=== PATIENT | female | born 1980 | race Caucasian/White ===

== ENCOUNTER 2016-07-30 18:31 | Emergency (ER) | payer MEDICAID ==
[~2016-07-30] VITALS: Ht 154.9 cm; Wt 67.0 kg
[~2016-07-30 18:31] MED LIST: CALC600T11 PO; FERR240T9 PO; IBUP-1542 PO; PREN-19 PO
[2016-07-30 18:35] VITALS: Ht 154.9 cm; Wt 67.0 kg
--- NOTE | 2016-07-30 20:07 | ERD ---
ER Documentation Chief Complaint Date/Time DATE: 07/30/16 TIME: 19:58 Chief Complaint sent by pmd for l pelvic pain and vag bleed since 06/13/16 HPI 35-year-old female presents to the emergency department complaining of pelvic pain and vaginal bleeding for 2 months since Jun 13, 2016. Patient complains of pelvic pain 8 out of 10 and describes as constant. She states that she uses 8 pads per day. Patient was seen at the [facility] by JOHN Shepherd and was referred here. Patient was given Toradol 60 mg IM in the clinic, an hour and a half ago by the provider. Patient denies any urinary symptoms or dizziness. Patient denies ROS All systems reviewed and are negative except as per history of present illness. Medications Home Meds Active Scripts Acetaminophen* (Tylenol*) 325 Mg Tablet, 2 TAB PO Q6 Y for PAIN AND OR ELEVATED TEMP, #20 TAB Prov:CECILIO GAMBOA PA-C 07/30/16 Ibuprofen* (Ibuprofen*) 600 Mg Tablet, 600 MG PO Q6 for 28 Days, TAB 0 Refills Prov:JOHANA MACEDO MD 03/16/16 Reported Medications Ferrous Gluconate (Iron) 1 Tab Tablet, 1 TAB PO DAILY, TAB 03/03/16 Calcium Carbonate* (Calcium Carbonate*) 600 MG Ca Tab, 600 MG PO DAILY, TAB 03/03/16 Vit-Iron,Carbonyl-FA (Prenatabs Rx) 1 Tab Tablet, 1 TAB PO 04/01/12 Allergies Allergies: Coded Allergies: No Known Allergies (Verified Allergy, Unknown, 01/30/16) PMhx/Soc History of Surgery: Yes (Episiotomy) Anesthesia Reaction: No Hx Neurological Disorder: No Hx Respiratory Disorders: No Hx Cardiac Disorders: No Hx Psychiatric Problems: No Hx Miscellaneous Medical Probl: Yes (,Dysfunctional Uterine Bleed) Hx Alcohol Use: No Hx Substance Use: No Hx Tobacco Use: No Smoking Status: Never smoker Physical Exam Vitals Vital Signs Date Time Temp Pulse Resp B/P Pulse Ox O2 Delivery O2 Flow Rate FiO2 07/30/16 18:35 98.4 69 20 153/91 99 Physical Exam GENERAL: well-developed/well-nourished, in no apparent distress, non-toxic appearing HENT: NC/AT, moist mucous membranes EYES: Conjunctiva normal NECK: Supple, no lymphadenopathy PULM: CTA bilaterally, no rales, rhonchi, or wheezing heard CV: Normal S1S2, RRR, good capillary refill GI: Soft, non-distended, tender to palpation pelvic region Normal bowel sounds, no masses or organomegaly felt on exam No gross peritonitis, no bruits Negative Rovsing, negative Garcia, negative McBurney's point, Negative CVAT BACK: No masses EXT: No clubbing, cyanosis, or edema NEURO: Alert and Orientated SKIN: Intact, normal turgor PSYCH: Normal mood and mentation Result Diagram: 07/30/16195807/30/161958 Results 24 hrs Laboratory Tests Test 07/30/16 19:59 07/30/16 20:00 Alanine Aminotransferase (ALT/SGPT) 27IU/L Albumin 4.5g/dl Albumin/Globulin Ratio 1.12 Alkaline Phosphatase 97IU/L Anion Gap 17 Aspartate Amino Transf (AST/SGOT) 18IU/L Basophils # 0.010^3/ul Basophils % 0.4% Blood Morphology Comment Blood Urea Nitrogen 20mg/dl Calcium Level 9.6mg/dl Carbon Dioxide Level 24mmol/L Chloride Level 106mmol/L Creatinine 0.68mg/dl Direct Bilirubin 0.00mg/dl Eosinophils # 0.110^3/ul Eosinophils % 0.8% Globulin 4.00g/dl Glucose Level 67mg/dl Hematocrit 36.1% Hemoglobin 12.2g/dl Indirect Bilirubin 0.1mg/dl Lipase 57U/L Lymphocytes # 2.510^3/ul Lymphocytes % 21.0% Mean Corpuscular Hemoglobin 28.3pg Mean Corpuscular Hemoglobin Concent 33.8g/dl Mean Corpuscular Volume 83.8fl Mean Platelet Volume 8.2fl Monocytes # 0.610^3/ul Monocytes % 5.0% Neutrophils # 8.710^3/ul Neutrophils % 72.8% Nucleated Red Blood Cells # 0.010^3/ul Nucleated Red Blood Cells % 0.0/100WBC Platelet Count 77109^3/UL Potassium Level 4.0mmol/L Red Blood Count 4.3110^6/ul Red Cell Distribution Width 14.4% Sodium Level 143mmol/L Total Bilirubin 0.1mg/dl Total Protein 8.5g/dl White Blood Count 12.010^3/ul Urine Bacteria FEW Urine Bilirubin NEGATIVE Urine Calcium Oxalate Crystals FEW Urine Clarity HAZY Urine Color LT. YELLOW Urine Epithelial Cells FEW Urine Glucose NEGATIVE% Urine Hemoglobin 2+ Urine Ketones NEGATIVE Urine Leukocyte Esterase NEGATIVE Urine Microscopic RBC 10-25/HPF Urine Microscopic WBC 0-2/HPF Urine Nitrite NEGATIVE Urine Specific Hart >=1.030 Urine Total Protein NEGATIVE Urine Uric Acid Crystals MODERATE Urine Urobilinogen 0.2 E.U./dL Urine pH 5.5 Procedures/MDM 35-year-old female presents to the emergency department complaining of pelvic pain and vaginal bleeding for 2 months since Jun 13, 2016. She states that she uses 8 pads per day. Patient was seen at the clinic - [facility] by JOHN Shepherd and was referred here for evaluation. UA showed evidence of hemoglobin without any evidence of urinary tract infection. Urine test is negative. A pelvic ultrasound was done and radiologist stated: 1. Small round fluid collection in the endometrial canal measuring 3.5 mm in maximal dimension. Follow-up ultrasound advised. Correlation with test advised. 2. Benign 1.6 cm right ovarian cyst. 3. Otherwise unremarkable study. Lab work was drawn. CBC did not show any evidence of significant leukocytosis or anemia. WBC was 12 likely due to stress. CMP did not show any evidence of renal, liver, or electrolyte abnormalities. Lipase was normal. UA did not show any evidence of hemoglobin or urinary tract infection. I have discussed these findings with the patient, I have discussed to return to her clinic to see JOHN Shepherd with her documents. Patient is hemodynaically stable for discharge with precautions to return to the ER for any worsening signs or symptoms Departure Diagnosis: Primary Impression: Excessive vaginal bleeding Condition: Stable CECILIO GAMBOA PA-C Jul 30, 2016 20:07
[2016-07-30 20:33] LABS: BASOPHILS % 0.4 % (0.0-2.0); EOSINOPHILS # 0.1 10^3/ul (0.0-0.5); EOSINOPHILS % 0.8 % (0.0-7.0); HEMATOCRIT 36.1 % (37.0-47.0); HEMOGLOBIN 12.2 g/dl (12.0-16.0); LYMPHOCYTES # 2.5 10^3/ul (0.8-2.9); MEAN CORPUSCULAR HEMOGLOBIN 28.3 pg (29.0-33.0); MEAN CORPUSCULAR HGB CONC 33.8 g/dl (32.0-37.0); MEAN CORPUSCULAR VOLUME 83.8 fl (82.0-101.0); MEAN PLATELET VOLUME 8.2 fl (7.4-10.4); MONOCYTE # 0.6 10^3/ul (0.3-0.9); NEUTROPHIL # 8.7 10^3/ul (1.6-7.5); NEUTROPHILS % 72.8 % (39.0-77.0); PLATELET COUNT 297 10^3/UL (140-440); RED BLOOD COUNT 4.31 10^6/ul (4.20-5.40); RED CELL DISTRIBUTION WIDTH 14.4 % (11.5-14.5)
[2016-07-30 20:36] LABS: CONDITION 1
[2016-07-30 20:39] LABS: ADD UMIC YES; URINE BILIRUBIN (Dip) NEGATIVE (NEGATIVE); URINE BLOOD (Dip) 2+ (NEGATIVE); URINE COLOR LT. YELLOW (YELLOW); URINE GLUCOSE (Dip) NEGATIVE (NEGATIVE); URINE KETONES (Dip) NEGATIVE (NEGATIVE); URINE LEUKOCYTE ESTERASE (Dip) NEGATIVE (NEGATIVE); URINE NITRITE (Dip) NEGATIVE (NEGATIVE); URINE TOTAL PROTEIN (Dip) NEGATIVE (NEGATIVE); URINE UROBILINOGEN (Dip) 0.2 E.U./dL (0.1-1.0)
[2016-07-30 20:40] LABS: ALBUMIN 4.5 g/dl (3.3-4.9)
[2016-07-30 20:42] LABS: BILIRUBIN,INDIRECT 0.1 mg/dl (0-1.1); BILIRUBIN,TOTAL 0.1 mg/dl (0.2-1.3); CREATININE 0.68 mg/dl (0.44-1.00)
[2016-07-30 20:43] LABS: ALBUMIN/GLOBULIN RATIO 1.12; CALCIUM 9.6 mg/dl (8.4-10.2); TOTAL PROTEIN 8.5 g/dl (6.1-8.1)
--- NOTE | 2016-07-30 21:17 | RADRPT ---
PROCEDURE: US Pelvis. CLINICAL INDICATION: Abnormal vaginal bleeding. Negative test. TECHNIQUE: The pelvis was evaluated with transabdominal and transvaginal sonography in the axial a nd sagittal planes. COMPARISON: No prior study is available for comparison. FINDINGS: Uterus: 6.5 x 4.3 x 6.5 cm. Endometrium: 4.6 mm. There is a small round fluid collection within the endometrial canal measuring 3.5 x 2.9 x 2.2 mm. The endometrium is otherwise normal. Right ovary: 2.4 x 1.5 x 2.1 cm. Left ovary: 1.9 x 1.4 x 1.5 cm. Uterine masses: None. Ovarian masses: There is a benign 1.6 cm right ovarian cyst with no internal echoes or septations. The ovaries are otherwise unremarkable. Color Doppler and pulsed Doppler sonography demonstrate norm al flow to the ovaries. Other pelvic masses: None. Free fluid: None. IMPRESSION: 1. Small round fluid collection in the endometrial canal measuring 3.5 mm in maximal dimension. Fo llow-up ultrasound advised. Correlation with test advised. 2. Benign 1.6 cm right ovarian cyst. 3. Otherwise unremarkable study. RPTAT: QQ .Pankaj Aviles MD, MD Date Time Electronically viewed and signed by .Pankaj Aviles MD, on 07/30/2016 21:16 .R/
[2016-07-30 21:25] LABS: URIC ACID CRYSTALS,URINE MODERATE
[2016-07-30 21:26] LABS: BACTERIA,URINE FEW
[2016-07-30] MEDS ORDERED: ACET325T33 PO (21:30)
[2016-07-30 21:50] VITALS: BP 134/78; PULSE 78; RESP 16; TEMP 98.1
== END 2016-07-30 21:50 | disposition home or self-care (01) ==
LOC: FTE 18:31
DX: N93.9 Abnormal uterine and vaginal bleeding, unspecified (principal); R10.2 Pelvic and perineal pain
CPT/HCPCS: 76830; 76856; 80053; 81001; 81003; 83690; 85025; 86850; 86900; 86901

== ENCOUNTER 2017-04-14 12:41 | Emergency (ER) | payer MEDICAID ==
[~2017-04-14] VITALS: Ht 157.5 cm; Wt 64.5 kg
[~2017-04-14 12:41] MED LIST changes: +ACET325T33 PO; -CALC600T11 PO; +CALC600T24 PO
[2017-04-14 12:42] VITALS: Ht 157.5 cm; Wt 64.5 kg
[2017-04-14] MEDS ORDERED: KETOROLAC 30 MG INJ IV STA (13:12)
[2017-04-14] MEDS ORDERED: METOCLOPRAMIDE 10 MG INJ IV ONE (13:30)
[2017-04-14] MEDS ORDERED: DIPHENHYDRAMINE 50 MG INJ IV ONE (13:30)
[2017-04-14] MEDS ORDERED: SOD CHLORIDE 0.9% 1,000 ML IV ONE (13:30)
[2017-04-14 13:45] LABS: URINE BLOOD (Dip) POC Trace-intact (NEGATIVE)
[2017-04-14] MEDS ORDERED: FIORICET PO (15:19)
[2017-04-14 15:32] VITALS: BP 142/84; PULSE 79; RESP 18; TEMP 98.2
--- NOTE | 2017-04-14 15:44 | ERD ---
ER Documentation Chief Complaint Date/Time DATE: 04/14/17 TIME: 15:37 Chief Complaint SMITH W/NAUSEA X3 DAYS HPI 36-year-old female patient with a past medical history of hypertension presents to the ED complaining of headache associated with nausea started 3 days ago. Reports that also she feels paresthesias of her right leg as well as tongue. States that her dizziness is positional, it is worse when she turns her head. Describes her headache as pressure-like and rates 8 out of 10. States that it is in the temporal region. States that she feels palpitations. Reports that she feels nervous and has some anxiety. Denies any chest pain, shortness of breath, wheezing, dyspnea on exertion, orthopnea, neck stiffness, blurred vision , vision loss, abdominal pain, back pain, vomiting, diarrhea. Denies any sick contacts. Denies any cough, rhinorrhea. ROS All systems reviewed and are negative except as per history of present illness. Medications Home Meds Active Scripts Acetamin/Butalbital/Caffeine* (Fioricet*) [id number] Tab, 1 TAB PO Q6H Y for PAIN, #30 TAB Prov:CELESTINA WEIR PA-C 04/14/17 Acetaminophen* (Tylenol*) 325 Mg Tablet, 2 TAB PO Q6 Y for PAIN AND OR ELEVATED TEMP, #20 TAB Prov:CECILIO GAMBOA PA-C 07/30/16 Ibuprofen* (Ibuprofen*) 600 Mg Tablet, 600 MG PO Q6 for 28 Days, TAB 0 Refills Prov:JOHANA MACEDO MD 03/16/16 Reported Medications Ferrous Gluconate (Iron) 1 Tab Tablet, 1 TAB PO DAILY, TAB 03/03/16 Calcium Carbonate* (Calcium Carbonate*) 600 MG Ca Tab, 600 MG PO DAILY, TAB 03/03/16 Vit-Iron,Carbonyl-FA (Prenatabs Rx) 1 Tab Tablet, 1 TAB PO 04/01/12 Allergies Allergies: Coded Allergies: No Known Allergies (Verified Allergy, Unknown, 01/30/16) PMhx/Soc History of Surgery: Yes (Episiotomy) Anesthesia Reaction: No Hx Neurological Disorder: No Hx Respiratory Disorders: No Hx Cardiac Disorders: No Hx Psychiatric Problems: No Hx Miscellaneous Medical Probl: Yes (,Dysfunctional Uterine Bleed) Hx Alcohol Use: No Hx Substance Use: No Hx Tobacco Use: No Physical Exam Vitals Vital Signs Date Time Temp Pulse Resp B/P Pulse Ox O2 Delivery O2 Flow Rate FiO2 04/14/17 15:32 98.2 79 18 142/84 99 Room Air 04/14/17 12:42 97.1 72 18 143/93 99 Physical Exam Const: Kro-gwh-mryuzrhas, well-nourished. In no acute distress. Head: Atraumatic, normocephalic Eyes: Normal Conjunctiva without injection. No purulent discharge. PERRLA. EOMI ENT: Normal external ear. Ear canal without erythema. Tympanic membrane pearly magaña without effusion or bulging. Nasal canal clear with normal turbinates. Moist oropharynx without tonsillar exudates. Non-erythematous pharynx. Uvula midline. No drooling. No trismus. Neck: No cervical midline tenderness. Full range of motion. No meningismus. No cervical lymphadenopathy. No JVD. Resp: Clear to auscultation bilaterally. No wheezing, rhonchi, rales, or crackles. No accessory muscle use. No retractions. Cardio: Regular rate and rhythm. No murmurs, rubs or gallops. Abd: Soft, non tender, non distended. Normal bowel sounds. No palpable masses. No rebound tenderness. No guarding. Negative McBurney's Point. Negative Garcia's Sign. Skin: Normal skin turgor. No petechiae or rashes Back: No midline tenderness. No CVA tenderness. Ext: No cyanosis, or edema. Distal pulses intact bilaterally. Neur: Awake and alert. Normal gait. Normal coordination. Cranial Nerves II- VII intact. Normal finger to nose. Muscle strength 5/5. Sensation intact. Psych: Normal Mood and Affect Results 24 hrs Laboratory Tests Test 04/14/17 13:51 Bedside Urine pH (LAB) 5.5 Bedside Urine Protein (LAB) Negative Bedside Urine Glucose (UA) Negative Bedside Urine Ketones (LAB) Negative Bedside Urine Blood Trace-intact Bedside Urine Nitrite (LAB) Negative Bedside Urine Leukocyte Esterase (L Negative Current Medications Medications (Trade) Dose Ordered Sig/Derrick Route PRN Reason Start Time Stop Time Status Last Admin Dose Admin Sodium Chloride (NS) 1,000 ml @ 1,000 mls/hr Q1H ONCE IV 04/14/17 13:30 04/14/17 14:29 DC 04/14/17 13:31 Ketorolac Tromethamine (Toradol) 30 mg ONCE STAT IV 04/14/17 13:12 04/14/17 13:14 DC 04/14/17 13:59 Metoclopramide HCl (Reglan) 10 mg ONCE ONCE IV 04/14/17 13:30 04/14/17 13:31 DC 04/14/17 13:59 Diphenhydramine HCl (Benadryl) 25 mg ONCE ONCE IV 04/14/17 13:30 04/14/17 13:31 DC 04/14/17 13:59 Procedures/MDM 36-year-old female patient with a past medical history of hypertension presents the ED complaining of headache and nausea, palpitations, paresthesias, of her tongue and right lower leg and dizziness. Patient is afebrile and nontoxic- appearing. Patient was treated here in the ED with Toradol 30 mg IV, Reglan 10 mg IV, Benadryl 25 mg IV with improvement of her symptoms. EKG was ordered to further evaluate patient. EKG reviewed and interpreted by Dr. Maxwell Rate/Rhythm: [68 bpm, Normal Sinus Rhythm] No ectopy, no ST elevations, normal axis. QRS, ST, T-waves: [No changes consistent w/ acute ischemia] Impression: [No evidence of ischemia or arrhythmia] Differentials include migraine versus anxiety versus benign positional vertigo. Low suspicion for acute myocardial infarction, pneumothorax, pneumonia, cardiac tamponade, pulmonary embolism, AAA, aortic dissection, Boerhaave's syndrome, cardiac dysrhythmias,meningitis, intracranial bleed, seizure, stroke, TIA or other emergent conditions. Low suspicion for intracranial bleed, subarachnoid hemorrhage, meningitis, TIA, stroke, seizures, glaucoma, retro-orbital hemorrhage, subdural hematoma, epidural hematoma, or other emergent conditions. Discharge medications: Fioricet Follow up with primary care physician in 1-2 days for a referral to an ears nose throat specialist and neurologist if symptoms do not improve. Instructed patient to return to the ED sooner for any worsening symptoms. Patient's questions were answered. Patient understood and agreed with discharge plan. Patient discharged stable. Departure Diagnosis: Primary Impression: Headache Headache type: unspecified Headache chronicity pattern: acute headache Intractability: not intractable Qualified Code: R51 - Acute nonintractable headache, unspecified headache type Additional Impression: Palpitations Condition: Stable Patient Instructions: Dizziness, Unk Cause, Headache, Unspecified, Palpitations Referrals: [facility] YOU HAVE RECEIVED A MEDICAL SCREENING EXAM AND THE RESULTS INDICATE THAT YOU DO NOT HAVE A CONDITION THAT REQUIRES URGENT TREATMENT IN THE EMERGENCY DEPARTMENT. FURTHER EVALUATION AND TREATMENT OF YOUR CONDITION CAN WAIT UNTIL YOU ARE SEEN IN YOUR DOCTORS OFFICE WITHIN THE NEXT 1-2 DAYS. IT IS YOUR RESPONSIBILITY TO MAKE AN APPOINTMENT FOR FOLOW-UP CARE. IF YOU HAVE A PRIMARY DOCTOR --you should call your primary doctor and schedule an appointment IF YOU DO NOT HAVE A PRIMARY DOCTOR YOU CAN CALL OUR PHYSICIAN REFERRAL HOTLINE AT IF YOU CAN NOT AFFORD TO SEE A PHYSICIAN YOU CAN CHOSE FROM THE FOLLOWING [facility] [address] [facility] [address] [facility] [facility] [address] [facility] [address] [facility] [address] [facility] [address] [facility] [facility] [facility] YOU HAVE RECEIVED A MEDICAL SCREENING EXAM AND THE RESULTS INDICATE THAT YOU DO NOT HAVE A CONDITION THAT REQUIRES URGENT TREATMENT IN THE EMERGENCY DEPARTMENT. FURTHER EVALUATION AND TREATMENT OF YOUR CONDITION CAN WAIT UNTIL YOU ARE SEEN IN YOUR DOCTORS OFFICE WITHIN THE NEXT 1-2 DAYS. IT IS YOUR RESPONSIBILITY TO MAKE AN APPOINTMENT FOR FOLOW-UP CARE. IF YOU HAVE A PRIMARY DOCTOR --you should call your primary doctor and schedule and appointment IF YOU DO NOT HAVE A PRIMARY DOCTOR YOU CAN CALL OUR PHYSICIAN REFERRAL HOTLINE AT . IF YOU CAN NOT AFFORD TO SEE A PHYSICIAN YOU CAN CHOSE FROM THE FOLLOWING [facility] INSTITUTIONS: [facility] [address] [place] [address] [facility] [address] [place] [address] [facility] [address] [place] [address] [facility] URGENT CARE/SPECIALTIES Additional Instructions: Llame al doctor MAMELISSA y art gagan OBED PARA DENTRO DE 1-2 CLAY para un referido a un neurlogo y odos nariz garganta especialista si no mejoran los sntomas de dolor de oliver y mareos. Dgale a la secretaria que nosotros le instruimos hacer esta obed.Avise o llame si terry condicin se empeora antes de la obed. Regresa aqui si peor o no mejor. CELESTINA WEIR PA-C Apr 14, 2017 15:44 CELESTINA WEIR PA-C Apr 14, 2017 15:44
== END 2017-04-14 15:33 | disposition home or self-care (01) ==
LOC: FTE 12:41
DX: R51 Headache (principal); R00.2 Palpitations; I10 Essential (primary) hypertension
CPT/HCPCS: 81003; 93005; 96374; 96375; J1200; J1885; J2765; J7030; Z7502

== ENCOUNTER 2017-05-08 16:27 | Emergency (ER) | payer MEDICAID ==
[~2017-05-08] VITALS: Ht 157.5 cm; Wt 64.5 kg
[~2017-05-08 16:27] MED LIST changes: +FIORICET PO
[2017-05-08 16:33] VITALS: Ht 157.5 cm; Wt 64.5 kg
[2017-05-08] MEDS ORDERED: CETI10CA PO (18:33)
[2017-05-08] MEDS ORDERED: GUAI120S26 PO (18:33)
[2017-05-08] MEDS ORDERED: ACET500C5 PO (18:33)
[2017-05-08 18:39] VITALS: BP 128/81; PULSE 82; RESP 18; TEMP 98.5
--- NOTE | 2017-05-08 21:47 | ERD ---
ER Documentation Chief Complaint Date/Time DATE: 05/08/17 TIME: 21:43 Chief Complaint fever, head pain chest congestion x 3 HPI 36-year-old female patient with a past medical history of migraines presents to the ED complaining of fever, headache, productive cough, chest congestion that started 3 days ago. Reports that her sons are also sick with similar symptoms. States that she has not tried taking any medications. Denies any wheezing, shortness of breath, fever, chills, chest pain, nausea, vomiting, diarrhea, neck stiffness, rashes. ROS All systems reviewed and are negative except as per history of present illness. Medications Home Meds Active Scripts Cetirizine Hcl* (Zyrtec*) 10 Mg Capsule, 10 MG PO DAILY, #10 TAB.CHEW Prov:CELESTINA WEIR PA-C 05/08/17 Acetaminophen* (Tylophen*) 500 Mg Capsule, 1 CAP PO Q6H Y for PAIN AND OR ELEVATED TEMP, #20 CAP Prov:CELESTINA WEIR PA-C 05/08/17 Xvrmklxezyt-A-Hsilxnvcna Hb* (Guaifenesin* DM Syrup) 120 Ml Syrup, 10 ML PO Q6H Y for COUGH, #120 ML Prov:CELESTINA WEIR PA-C 05/08/17 Acetamin/Butalbital/Caffeine* (Fioricet*) [id number] Tab, 1 TAB PO Q6H Y for PAIN, #30 TAB Prov:CELESTINA WEIR PA-C 04/14/17 Acetaminophen* (Tylenol*) 325 Mg Tablet, 2 TAB PO Q6 Y for PAIN AND OR ELEVATED TEMP, #20 TAB Prov:CECILIO GAMBOA PA-C 07/30/16 Ibuprofen* (Ibuprofen*) 600 Mg Tablet, 600 MG PO Q6 for 28 Days, TAB 0 Refills Prov:JOHANA MACEDO MD 03/16/16 Reported Medications Ferrous Gluconate (Iron) 1 Tab Tablet, 1 TAB PO DAILY, TAB 03/03/16 Calcium Carbonate* (Calcium Carbonate*) 600 MG Ca Tab, 600 MG PO DAILY, TAB 03/03/16 Vit-Iron,Carbonyl-FA (Prenatabs Rx) 1 Tab Tablet, 1 TAB PO 04/01/12 Allergies Allergies: Coded Allergies: No Known Allergies (Verified Allergy, Unknown, 05/08/17) PMhx/Soc History of Surgery: Yes (Episiotomy) Anesthesia Reaction: No Hx Neurological Disorder: No Hx Respiratory Disorders: No Hx Cardiac Disorders: No Hx Psychiatric Problems: No Hx Miscellaneous Medical Probl: Yes (,Dysfunctional Uterine Bleed) Hx Alcohol Use: No Hx Substance Use: No Hx Tobacco Use: No Smoking Status: Never smoker Physical Exam Vitals Vital Signs Date Time Temp Pulse Resp B/P Pulse Ox O2 Delivery O2 Flow Rate FiO2 05/08/17 18:39 98.5 82 18 128/81 99 Room Air 05/08/17 16:33 98.7 89 18 138/88 99 Physical Exam Const: [id number]-nar-bisfilfij, well-nourished. In no acute distress. Head: Atraumatic, normocephalic Eyes: Normal Conjunctiva without injection. No purulent discharge. PERRL. EOMI ENT: Normal external ear. Ear canal without erythema. Tympanic membrane pearly magaña without effusion or bulging. Nasal canal clear with normal turbinates. Moist oropharynx without tonsillar exudates. Non-erythematous pharynx. Uvula midline. No drooling. No trismus. Neck: Full range of motion. No meningismus. No cervical lymphadenopathy. Resp: Clear to auscultation bilaterally. No wheezing, rhonchi, rales, or crackles. No accessory muscle use. No retractions. Cardio: Regular rate and rhythm. No murmurs, rubs or gallops. Abd: Soft, non tender, non distended. Normal bowel sounds. No palpable masses. No rebound tenderness. No guarding. Skin: No petechiae or rashes Back: No midline tenderness. No CVA tenderness. Ext: No cyanosis, or edema. Neur: Awake and alert. Psych: Normal Mood and Affect Procedures/MDM 36-year-old female patient with no significant past medical history presents to the ED complaining of fever, cough, headache, chest congestion that started 3 days ago. Patient is afebrile and nontoxic-appearing. Patient has normal vital signs. This patient presents to the ED with symptoms consistent with a viral acute upper respiratory infection. Patient is afebrile and has normal vital signs. Patient's physical exam include lungs which were clear to auscultation and a normal pulse oximetry. There is a low suspicion for pneumonia , pneumothorax, mononucleosis, pulmonary embolism, epiglottitis, otitis media, otitis externa, viral/strep pharyngitis, sinusitis, peritonsillar abscess, mastoiditis, retropharyngeal abscess, meningitis, sepsis, acute abdomen or other emergent conditions. Fluids, rest, and symptomatic treatment are recommended for the management of patient's symptoms. Discharge medications: Zyrtec, Guaifenesin DM, Tylenol Patient was instructed to return to the ED for any new or worsening symptoms. They should otherwise follow up with the primary care provider within 1-2 days. The patient's questions were answered at the time of discharge. Patient understood and agreed with discharge management. Departure Diagnosis: Primary Impression: Cough Additional Impressions: Chest congestion Headache Headache type: unspecified Headache chronicity pattern: unspecified pattern Intractability: not intractable Qualified Code: R51 - Nonintractable headache, unspecified chronicity pattern, unspecified headache type Condition: Stable Patient Instructions: Uri, Viral, No Abx (Adult) Referrals: [facility] YOU HAVE RECEIVED A MEDICAL SCREENING EXAM AND THE RESULTS INDICATE THAT YOU DO NOT HAVE A CONDITION THAT REQUIRES URGENT TREATMENT IN THE EMERGENCY DEPARTMENT. FURTHER EVALUATION AND TREATMENT OF YOUR CONDITION CAN WAIT UNTIL YOU ARE SEEN IN YOUR DOCTORS OFFICE WITHIN THE NEXT 1-2 DAYS. IT IS YOUR RESPONSIBILITY TO MAKE AN APPOINTMENT FOR FOLOW-UP CARE. IF YOU HAVE A PRIMARY DOCTOR --you should call your primary doctor and schedule an appointment IF YOU DO NOT HAVE A PRIMARY DOCTOR YOU CAN CALL OUR PHYSICIAN REFERRAL HOTLINE AT IF YOU CAN NOT AFFORD TO SEE A PHYSICIAN YOU CAN CHOSE FROM THE FOLLOWING [facility] [address] [facility] [address] [facility] [address] [facility] [facility] [address] [facility] [address] [facility]. [facility]. [address] [facility]. [facility] YOU HAVE RECEIVED A MEDICAL SCREENING EXAM AND THE RESULTS INDICATE THAT YOU DO NOT HAVE A CONDITION THAT REQUIRES URGENT TREATMENT IN THE EMERGENCY DEPARTMENT. FURTHER EVALUATION AND TREATMENT OF YOUR CONDITION CAN WAIT UNTIL YOU ARE SEEN IN YOUR DOCTORS OFFICE WITHIN THE NEXT 1-2 DAYS. IT IS YOUR RESPONSIBILITY TO MAKE AN APPOINTMENT FOR FOLOW-UP CARE. IF YOU HAVE A PRIMARY DOCTOR --you should call your primary doctor and schedule and appointment IF YOU DO NOT HAVE A PRIMARY DOCTOR YOU CAN CALL OUR PHYSICIAN REFERRAL HOTLINE AT . IF YOU CAN NOT AFFORD TO SEE A PHYSICIAN YOU CAN CHOSE FROM THE FOLLOWING [facility] INSTITUTIONS: [facility] [address] [place] [address] [facility] [address] [place] [address] [facility] [address] [place] [address] [facility] URGENT CARE/SPECIALTIES Additional Instructions: Llame al doctor MAANA y art gagan OBED PARA DENTRO DE 2-3 CLAY.Dgale a la secretaria que nosotros le instruimos hacer esta obed.Avise o llame si terry condicin se empeora antes de la obed. Regresa aqui si peor o no mejor. CELESTINA WEIR PA-C May 08, 2017 21:47
== END 2017-05-08 18:40 | disposition home or self-care (01) ==
LOC: FTE 16:27
DX: R05 Cough (principal); R09.89 Other specified symptoms and signs involving the circulatory and respiratory systems; R51 Headache
CPT/HCPCS: 99283

== ENCOUNTER 2017-07-28 15:47 | Emergency (ER) | END 2017-07-28 20:26 | disposition home or self-care (01) ==

== ENCOUNTER 2018-05-02 18:10 | Emergency (ER) | END 2018-05-02 20:38 | disposition home or self-care (01) ==

== ENCOUNTER 2019-02-11 15:39 | Emergency (ER) | payer MEDICAID ==
[~2019-02-11] VITALS: Wt 72.7 kg
[~2019-02-11 15:39] MED LIST changes: +ACET500C5 PO; +BUTA1CAP38 PO; +CETI10CA PO; +GUAI120S25 PO; +LISI-313 PO; +LORA-441 PO; +LORA0.5T PO; +NAPR-985 PO
[2019-02-11] MEDS ORDERED: ONDANSETRON 4 MG INJ IV STA (16:40)
[2019-02-11] MEDS ORDERED: KETOROLAC 30 MG INJ IV STA (16:40)
[2019-02-11] MEDS ORDERED: SOD CHLORIDE 0.9% 1,000 ML IV ONE (17:00)
[2019-02-11] MEDS ORDERED: morphine 2 MG INJ IV STA ×2 (19:10→20:11)
[2019-02-11] MEDS ORDERED: DIPHENHYDRAMINE 50 MG INJ IV ONE (19:30)
[2019-02-11] MEDS ORDERED: METOCLOPRAMIDE 10 MG INJ IV ONE (19:30)
[2019-02-11 20:21] VITALS: BP 128/79; PULSE 63; RESP 18
--- NOTE | 2019-02-12 02:22 | ERD ---
ER Documentation Chief Complaint Chief Complaint coleman, n/v, l. eye redness HPI History of Present Illness:-year-old female who reports a past medical history of hypertension coming in today due to complaint of headache, nausea vomiting, left eye redness. Patient reports waking up 3 days ago with redness to the left eye, no pain. Associated symptoms include photophobia and phonophobia. Patient reports approximately 6 episodes of vomiting since onset of headache. Patient reports headache increased 4 days ago. Patient also reported intermittent pain to left arm and left leg At home pharmacological/nonpharmacological treatment for symptoms: Denies Denies social concerns; Denies recent foreign travel ROS All systems reviewed and are negative except as per history of present illness. Medications Home Meds Active Scripts Naproxen* (Naprosyn*) 500 Mg Tablet, 500 MG PO BID PRN for PAIN AND/OR INFLAMMATION, #30 TAB Prov:CHAVA THEODORE NP 02/11/19 Cqabtoqvii-Gfcozpuxbjrho-Vomizglf* (Fioricet*) 50-300-40 Mg Capsule, 1 CAP PO Q6 for HEADACHE, #12 CAP Prov:CHAVA THEODORE NP 02/11/19 Ibuprofen* (Motrin*) 600 Mg Tab, 600 MG PO Q6, #30 TAB Prov:TOÑITO PLASCENCIA 05/02/18 Lisinopril* (Lisinopril*) 5 Mg Tablet, 5 MG PO DAILY, #15 TAB Prov:TOÑITO PLASCENCIA 05/02/18 Lorazepam* (Lorazepam*) 0.5 Mg Tablet, 0.5 MG PO Q8 PRN for ANXIETY, #15 TAB Prov:HENNY JAMES MD 07/28/17 Cetirizine Hcl* (Zyrtec*) 10 Mg Capsule, 10 MG PO DAILY, #10 TAB.CHEW Prov:CELESTINA WEIR PA-C 05/08/17 Acetaminophen* (Tylophen*) 500 Mg Capsule, 1 CAP PO Q6H PRN for PAIN AND OR ELEVATED TEMP, #20 CAP Prov:CELESTINA WEIR PA-C 05/08/17 Pkipusctbxv-R-Ubqiloyibl Hb* (Guaifenesin* DM Syrup) 120 Ml Syrup, 10 ML PO Q6H PRN for COUGH, #120 ML Prov:CELESTINA WEIR PA-C 05/08/17 Acetamin/Butalbital/Caffeine* (Fioricet*) [id number] Tab, 1 TAB PO Q6H PRN for PAIN, #30 TAB Prov:CELESTINA WEIR PA-C 04/14/17 Acetaminophen* (Tylenol*) 325 Mg Tablet, 2 TAB PO Q6 PRN for PAIN AND OR ELEVATED TEMP, #20 TAB Prov:CECILIO GAMBOA PA-C 07/30/16 Ibuprofen* (Ibuprofen*) 600 Mg Tablet, 600 MG PO Q6 for 28 Days, TAB 0 Refills Prov:JOHANA MACEDO MD 03/16/16 Reported Medications Ferrous Gluconate (Iron) 1 Tab Tablet, 1 TAB PO DAILY, TAB 03/03/16 Calcium Carbonate* (Calcium Carbonate*) 600 MG Ca Tab, 600 MG PO DAILY, TAB 03/03/16 Vit-Iron,Carbonyl-FA (Prenatabs Rx) 1 Tab Tablet, 1 TAB PO 04/01/12 Allergies Allergies: Coded Allergies: No Known Allergies (Verified Allergy, Unknown, 05/08/17) PMhx/Soc History of Surgery: Yes (Episiotomy) Anesthesia Reaction: No Hx Neurological Disorder: No Hx Respiratory Disorders: No Hx Cardiac Disorders: Yes (HTN) Hx Psychiatric Problems: No Hx Miscellaneous Medical Probl: Yes (,Dysfunctional Uterine Bleed) Hx Alcohol Use: No Hx Substance Use: No Hx Tobacco Use: No FmHx Family History: No diabetes, No coronary disease Physical Exam Vitals Vital Signs Date Temp Pulse Resp B/P (MAP) Pulse Ox O2 O2 Flow FiO2 Time Delivery Rate 02/11/19 97.9 63 18 128/79 98 Room Air 20:21 (95) 02/11/19 98.6 75 20 136/67 97 15:52 (90) Physical Exam Const: No acute distress, afebrile, patient covering eyes Head: Atraumatic Eyes: Normal Conjunctiva, mild injection noted to 7:00 to 9:00 of left eye ENT: Normal External Ears, Nose and Mouth. Neck: Full range of motion. No meningismus. Resp: Clear to auscultation bilaterally Cardio: Regular rate and rhythm, no murmurs Abd: Soft, non tender, non distended. No guarding, no masses, no rigidity Skin: No petechiae or rashes Back: No midline or flank tenderness Ext: No cyanosis, or edema Neur: Awake and alert x3, speaking in clear sentences, no focal deficits or facial asymmetry Psych: Normal Mood and Affect Results 24 hrs Laboratory Tests Test 02/11/19 16:55 POC Beta HCG, Qualitative NEGATIVE Current Medications Medications Dose Sig/Derrick Start Time Status Last (Trade) Ordered Route PRN Stop Time Admin Dose Reason Admin Sodium 1,000 ml @ Q1H ONCE 02/11/19 DC 02/11/19 Chloride 1,000 mls/hr IV 17:00 16:53 02/11/19 17:59 Ondansetron 4 mg ONCE STAT 02/11/19 DC 02/11/19 HCl (Zofran IV 16:40 16:53 Inj) 02/11/19 16:42 Ketorolac 30 mg ONCE STAT 02/11/19 DC 02/11/19 Tromethamine IV 16:40 16:54 (Toradol) 02/11/19 16:42 5 mg ONCE ONCE 02/11/19 DC 02/11/19 Metoclopramid IV 19:30 19:17 e HCl 02/11/19 19:31 (Reglan) 12.5 mg ONCE ONCE 02/11/19 DC 02/11/19 Diphenhydrami IV 19:30 19:17 ne HCl 02/11/19 19:31 (Benadryl) Morphine 2 mg ONCE STAT 02/11/19 DC 02/11/19 Sulfate IV 19:10 19:17 (morphine) 02/11/19 19:12 Morphine 2 mg ONCE STAT 02/11/19 DC Sulfate IV 20:11 (morphine) 02/11/19 20:12 Procedures/MDM ED COURSE: ED course includes a thorough examination and history. The patient was stable throughout ED course. I kept the patient and/or family informed of laboratory and diagnostic imaging results throughout the ED course. LABS: Urine negative MEDICATIONS GIVEN IN ER: IV NS, Zofran, ketorolac Patient tolerated medication well with no adverse reactions. Patient reported improvement in pain. MEDICAL DECISION MAKING: Patient reassessment at 1904: Pain currently 8 of 10 after initial medication administration. Orders placed for Reglan and diphenhydramine and morphine 2 mg. Patient reassessment at 2006: Patient asleep, awakens to voice. Patient reports pain is 5/10. Orders placed for 2 mg of morphine before discharge. Low suspicion for life-threatening medical emergency. This patient for neurological emergency as noted neuro deficits are present. Otherwise healthy patient presenting with constellation of symptoms likely representing headache possibly migraine as characterized by history, physical exam findings, lab findings. Patient reassessment @ 2039: Patient decided she did not need morphine before discharge, pain was tolerable to go home. Patient hemodynamically stable. No respiratory distress, otherwise relatively well appearing and nontoxic. Disposition given. Patient educated on diagnoses, prescriptions, follow-up care, return precautions. Strict return precautions given for worsening condition; questions answered discharge. Patient verbalizes understanding of discharge instructions. PRESCRIPTIONS FOR HOME: Naproxen, Fioricet DISPOSITION: DISCHARGE At this time, patient is stable for discharge and outpatient management. I have instructed the patient to follow-up with his/her primary care physician in 1-2 days. I have discussed with the patient the possibility of needing to see a specialist for further workup and imaging studies if symptoms persist. I have instructed the patient to promptly return to the ER for any new or worsening symptoms including increased pain, fever, nausea, vomiting, weakness or LOC. The patient and/or family expressed understanding of and agreement with this plan. All questions were answered. Home care instructions were provided. DISCLAIMER: Inadvertent spelling and grammatical errors are likely due to EHR/dictation software use and do not reflect on the overall quality of patient care. Also, please note that the electronic time recorded on this note does not necessarily reflect the actual time of the patient encounter. Departure Diagnosis: Primary Impression: Headache Condition: Stable Patient Instructions: Self-Care for Headaches Referrals: [facility] Usted se coleman hecho un examen mdico de control que le indica que no est en gagan condicin que requiera tratamiento urgente en el Departamento de Emergencia. Un estudio ms profundo y el tratamiento de brown condicin pueden esperar sin ningn riesgo hasta que usted sea atendida/o en el consultorio de brown mdico o gagan clnica. Es responsabilidad suya arreglar gagan lauren para el seguimiento del torin. MANEJO DE CONDICIONES NO URGENTES EN EL FUTURO 1) Si usted tiene un mdico de atencin primaria: Usted debera llamar a brown mdico de atencin primaria antes de venir al dep artamento de emergencia. Despus de las horas de consultorio, brown doctor o brown asociado/a est disponible por telfono. El mdico o enfermero de ericka en el servicio telefnico puede asesorarle por jennifer medio para atender el problema, o torin contrario se puede programar gagan lauren. 2) Si usted no tiene un mdico de atencin primaria: Llame al mdico o clnica de referencia que aparece abajo ximena las horas de consultorio para hacer gagan lauren para que le vean. CLINICAS: [facility] [phone] [facility] [phone] [facility] [phone] [address] [facility]. [facility] [phone] [address] [facility] [place] [id number] [phone] [facility] [phone] [address] [facility]. [facility] () Usted se coleman hecho un examen mdico de control que le indica que no est en gagan condicin que requiera tratamiento urgente en el Departamento de Emergencia. Un estudio ms profundo y el tratamiento de brown condicin pueden esperar sin ningn riesgo hasta que usted sea atendida/o en el consultorio de brown mdico o gagan clnica. Es responsabilidad suya arreglar gagan lauren para el seguimiento del torin. MANEJO DE CONDICIONES NO URGENTES EN EL FUTURO 1) Si usted tiene un mdico de atencin primaria: Usted debera llamar a brown mdico de atencin primaria antes de venir al dep artamento de emergencia. Despus de las horas de consultorio, brown doctor o brown asociado/a est disponible por telfono. El mdico o enfermero de ericka en el servicio telefnico puede asesorarle por jennifer medio para atender el problema, o torin contrario se puede programar gagan lauren. 2) Si usted no tiene un mdico de atencin primaria: Llame al mdico o condado institucions de referencia que aparece abajo ximena las horas de consultorio para hacer gagan lauren para que le vean. SI USTED NO PUEDE PAGAR PARA MARIBEL UN MEDICO puede ir a: [facility] [address] [place] [address] [facility] [address] [place] [address] [facility] [address] [place] [address] [facility] [facility] [address] [place], [place] [id number] Additional Instructions: Google Translate utilizado para la traduccin de las siguientes lneas, por favor, disculpe los errores. Muchas dangelo por permitirnos participar en brown cuidado. Brown colt y seguridad es nuestra principal prioridad en [facility]. Es importante leer todas las instrucciones de marcela y la educacin que se proporcionan en brown paquete de marcela. Llame a brown mdico de atencin primaria MAANA para gagan lauren ximena los prximos 2 a 4 flowers y lleve toda la informacin y los medicamentos recetados. Llene las recetas y siga exactamente las instrucciones de la etiqueta. Si los sntomas empeoran y brown proveedor no est disponible, regrese inmediatamente al Departamento de Emergencias. ----- Google Translate used for translation of following lines, please excuse errors. Thank you very much for allowing us to participate in your care. Your health and safety is our top priority at [facility]. It is important to read all discharge instructions and education provided in your discharge packet. Call your primary care doctor TOMORROW for an appointment during the next 2-4 days and bring all the information and medications prescribed. Have prescriptions filled and follow precisely the directions on the label. If the symptoms get worse and your provider is unavailable, return to the Emergency Department immediately. CHAVA THEODORE NP Feb 12, 2019 02:22
== END 2019-02-11 20:54 | disposition home or self-care (01) ==
LOC: FTE 15:39
DX: R51 Headache (principal); I10 Essential (primary) hypertension
CPT/HCPCS: 81025; 96374; 96375; J1200; J1885; J2270; J2405; J2765; J7030; Z7502

== ENCOUNTER 2019-03-08 19:53 | Emergency (ER) | payer MEDICAID ==
[~2019-03-08] VITALS: Ht 154.9 cm; Wt 84.1 kg
[2019-03-08 19:54] VITALS: Ht 154.9 cm; Wt 84.1 kg
[2019-03-08] MEDS ORDERED: SOD CHLORIDE 0.9% 1,000 ML IV STA (20:04)
--- NOTE | 2019-03-08 20:13 | ERD ---
ER Documentation Chief Complaint Chief Complaint ACUTE PANIC ATTACK; FOUND OUT MOTHER ; NO NEURO DEFCITS HPI This is a 38-year-old female who just recently found out that her mother had and all of a sudden became lightheaded and dizzy with palpitations. She became very tearful. Her sister brought her to the emergency department she was unable to control her grief. The patient does not complain of headache. She has no chest pain. She denies any suicidal homicidal thoughts ideations. Patient does not smoke tobacco. No history of coronary artery disease. ROS All systems reviewed and are negative except as per history of present illness. Medications Home Meds Active Scripts Lorazepam* (Ativan*) 0.5 Mg Tablet, 0.5 MG PO Q8H PRN for ANXIETY, #10 TAB Prov:KIKE LAWRENCE MD 03/08/19 Naproxen* (Naprosyn*) 500 Mg Tablet, 500 MG PO BID PRN for PAIN AND/OR INFLAMMATION, #30 TAB Prov:CHAVA THEODORE NP 02/11/19 Rapgkngamo-Pkqorecffouup-Smelpdpf* (Fioricet*) 50-300-40 Mg Capsule, 1 CAP PO Q6 for HEADACHE, #12 CAP Prov:CHAVA THEODORE NP 02/11/19 Ibuprofen* (Motrin*) 600 Mg Tab, 600 MG PO Q6, #30 TAB Prov:TOÑITO PLASCENCIA 05/02/18 Lisinopril* (Lisinopril*) 5 Mg Tablet, 5 MG PO DAILY, #15 TAB Prov:TOÑITO PLASCENCIA 05/02/18 Lorazepam* (Lorazepam*) 0.5 Mg Tablet, 0.5 MG PO Q8 PRN for ANXIETY, #15 TAB Prov:HENNY JAMES MD 07/28/17 Cetirizine Hcl* (Zyrtec*) 10 Mg Capsule, 10 MG PO DAILY, #10 TAB.CHEW Prov:CELESTINA WEIR PA-C 05/08/17 Acetaminophen* (Tylophen*) 500 Mg Capsule, 1 CAP PO Q6H PRN for PAIN AND OR ELEVATED TEMP, #20 CAP Prov:CELESTINA WEIR PA-C 05/08/17 Dohnxercnax-F-Vcmvvoglxd Hb* (Guaifenesin* DM Syrup) 120 Ml Syrup, 10 ML PO Q6H PRN for COUGH, #120 ML Prov:CELESTINA WEIR PA-C 05/08/17 Acetamin/Butalbital/Caffeine* (Fioricet*) [id number] Tab, 1 TAB PO Q6H PRN for PAIN, #30 TAB Prov:CELESTINA WEIR PA-C 04/14/17 Acetaminophen* (Tylenol*) 325 Mg Tablet, 2 TAB PO Q6 PRN for PAIN AND OR E LEVATED TEMP, #20 TAB Prov:CECILIO GAMBOA PA-C 07/30/16 Ibuprofen* (Ibuprofen*) 600 Mg Tablet, 600 MG PO Q6 for 28 Days, TAB 0 Refills Prov:JOHANA MACEDO MD 03/16/16 Reported Medications Ferrous Gluconate (Iron) 1 Tab Tablet, 1 TAB PO DAILY, TAB 03/03/16 Calcium Carbonate* (Calcium Carbonate*) 600 MG Ca Tab, 600 MG PO DAILY, TAB 03/03/16 Vit-Iron,Carbonyl-FA (Prenatabs Rx) 1 Tab Tablet, 1 TAB PO 04/01/12 Allergies Allergies: Coded Allergies: No Known Allergies (Verified Allergy, Unknown, 05/08/17) PMhx/Soc History of Surgery: Yes (Episiotomy) Anesthesia Reaction: No Hx Neurological Disorder: No Hx Respiratory Disorders: No Hx Cardiac Disorders: Yes (HTN) Hx Psychiatric Problems: No Hx Miscellaneous Medical Probl: Yes (,Dysfunctional Uterine Bleed) Hx Alcohol Use: No Hx Substance Use: No Hx Tobacco Use: No Smoking Status: Never smoker Physical Exam Vitals Vital Signs Date Temp Pulse Resp B/P (MAP) Pulse Ox O2 O2 Flow FiO2 Time Delivery Rate 03/08/19 98.6 109 26 165/107 100 19:54 (126) Physical Exam Constitutional:Well-developed. Well-nourished. Patient tearful HEENT:Normocephalic. Atraumatic.Pupils were equal round reactive to light. Moist mucous membranes.No tonsillar exudates. Neck: No nuchal rigidity. No lymphadenopathy. No posterior cervical spine tenderness or step-offs. Respiratory: Not using accessory muscles of respiration.Lungs were clear to auscultation bilaterally. No rhonchi. No rales. No wheezing. Cardiovascular: Regular rate regular rhythm.No murmurs. No rubs were appreciated.S1, S2 normal. Distal pulses are palpable 2+ bilaterally. GI: Abdomen was soft. Nontender. Non Distended. No pulsatile abdominal masses or bruits. No rebound. No guarding. Bowel sounds were present and normal. Muscle skeletal: Full range of motion of both the upper and lower extremities bilaterally.Normal muscle tone.No assymetrical calf tenderness or swelling. Skin: No petechia, no purpura. No lesions on the palms or the soles of the feet. No maculopapular rash. NEURO: Patient was alert and awake however patient was tearful and refused to answer questions.No facial droop. Gait not observed as patient refused to ambulate.Speech had regular rate and rhythm. No focal neurological deficits. Results 24 hrs Current Medications Medications Dose Sig/Derrick Start Time Status Last (Trade) Ordered Route PRN Stop Time Admin Dose Reason Admin Sodium 1,000 ml @ Q1H STAT 03/08/19 Chloride 1,000 mls/hr IV 20:04 03/08/19 21:03 Lorazepam 1 mg ONCE ONCE 03/08/19 (Ativan) IV 20:30 03/08/19 20:31 Procedures/MDM This is a 38-year-old female presented to the emergency department with physical exam findings that were concerning for an acute grief reaction. The patient is placed on a electronic device monitor with no ectopy. No severe electrolyte abnormalities. EKG showed no evidence of myocardial ischemia. The patient received IV Ativan. She is not suicidal homicidal. Family was present at bedside. The patient's symptoms improved and she was now at her baseline mental status. She states she felt comfortable being discharged home. 12 Lead EKG tracing ordered and reviewed by myself showed: Normal sinus rhythm of 95 bpm and no arrhythmia. SD interval normal. QRS duration normal. No ST segment elevation No ST segment depression. No changes consistent with acute ischemia. The patient was discharged home in fair condition. They were instructed to return to the emergency department at any time if there was any worsening of their condition. The patient stated they would follow up with their PCP in the next 24-48 hours to initiate a suitable medication regimen under the care of their PCP as well as to allow their PCP to monitor any drug reactions. The patient was discharged home with prescriptions after they gave informed consent to the new medication. They were also fully informed by myself on the adverse effects and adverse drug interactions in order to provide adequate safeguards to prevent possible adverse reactions to medications. Departure Diagnosis: Primary Impression: Grief reaction Condition: Serious KIKE LAWRENCE MD Mar 08, 2019 20:13
[2019-03-08] MEDS ORDERED: LORAZEPAM 2 MG INJ IV ONE (20:30)
[2019-03-08 22:00] VITALS: BP 145/97; PULSE 85; RESP 16
== END 2019-03-08 22:02 | disposition home or self-care (01) ==
LOC: E/R 19:53
DX: F43.20 Adjustment disorder, unspecified (principal); I10 Essential (primary) hypertension
CPT/HCPCS: 80053; 82550; 82553; 83880; 84484; 85025; 85610; 85730; 93005; 96374; J2060; J7030; Z7502